=== PATIENT | female | born 1990 | race Caucasian/White ===

== ENCOUNTER 2023-12-04 09:11 | Emergency (ER) | payer OTHER ==
[~2023-12-04] VITALS: Ht 165.1 cm; Wt 77.1 kg
[2023-12-04] MEDS ORDERED: ketorolac trometh. 30mg/ml inj. IV ONE (10:45)
[2023-12-04] MEDS ORDERED: orphenadrine citrate 60mg/2ml inj. IM ONE (10:50)
[2023-12-04] MEDS ORDERED: ketorolac trometh inj. 60 MG/2 ML VIAL IM ONE (11:25)
[2023-12-04 11:48] LABS: BASOPHILS % (AUTO) 0.6 % (0-1); EOSINOPHILS # (AUTO) 0.2 X10'3 (0-0.9); EOSINOPHILS % (AUTO) 2.6 % (0-6); HEMATOCRIT 39.9 % (35.0-45.0); HEMOGLOBIN 13.5 g/dl (12.0-16.0); LYMPHOCYTES # (AUTO) 1.6 X10'3 (1.1-4.8); LYMPHOCYTES % (AUTO) 22.3 % (21-51); MEAN CORPUSCULAR HEMOGLOBIN 30.7 PG (27.0-31.0); MEAN CORPUSCULAR HGB CONC 33.8 g/dL (33.0-36.5); MEAN CORPUSCULAR VOLUME 90.9 FL (78-98); MEAN PLATELET VOLUME 8.6 FL (7.4-10.4); MONOCYTES # (AUTO) 0.5 X10'3 (0-0.9); MONOCYTES % (AUTO) 7.6 % (2-12); NEUTROPHILS # (AUTO) 4.7 X10'3 (1.8-7.7); NEUTROPHILS % (AUTO) 66.9 % (42-75); PLATELET COUNT 278 X10'3 (140-440); RED BLOOD COUNT 4.39 X10'6 (4.20-5.60)
[2023-12-04 11:57] LABS: HCG SERUM QL NEGATIVE
[2023-12-04] MEDS ORDERED: [UNRECOGNIZED DRUG - CODE] IJ (14:18)
[2023-12-04 14:38] VITALS: BP 128/86; PULSE 88; RESP 18; TEMP 97.5; O2SAT 98
== END 2023-12-04 14:39 | disposition home or self-care (01) ==
LOC: ER 09:11
DX: M54.2 Cervicalgia (principal); R20.0 Anesthesia of skin; M79.602 Pain in left arm; Z79.899 Other long term (current) drug therapy
CPT/HCPCS: 36415; 72141; 84703; 85025; 96372; 99285; J1885; J2360; 99284